=== PATIENT | female | born 1935 | race Caucasian/White ===

== ENCOUNTER 2016-10-22 05:53 | Inpatient (IN) | payer MEDICARE, OTHER ==
[~2016-10-22] VITALS: Ht 149.9 cm; Wt 61.3 kg
[~2016-10-22 05:53] MED LIST: ALDACTONE25 MG PO; ATIVAN0.5 MG PO; BROVANA15 MCG/2 M INH; BYSTOLIC10 MG PO; CENTRUM SILVER1 EAC1 PO; CRANBERRY405 MG PO; CULTURELLE1 CAP PO; ENTRESTO 24 MG1 EACH PO; HALFPRIN81 MG PO; LASIX20 MG PO; LEVAQUIN750 MG PO; LEXAPRO10 MG PO; LIPITOR80 MG PO; MILLIPRED5 MG PO; MUCINEX600 MG PO; NEXIUM40 MG PO; PREDNISONE5 MG PO; PROBIOTIC1 EAC3 PO; PROTONIX40 MG PO; PROVENTIL2.5 MG/3 M INH; PULMICORT0.5 MG/2 M INH; SPIRIVA18 MCG INH; SYNTHROID25 MCG PO; TYLENOL325 MG PO; ZETIA10 MG PO; ZOCOR20 MG PO
[2016-10-22] MEDS ORDERED: PREDNISONE5 MG PO (06:43)
[2016-10-22] MEDS ORDERED: FERROUS SULFAT325 M1 PO (09:40)
[2016-10-25] MEDS ORDERED: MUCINEX600 MG PO (08:41)
[2016-10-25] MEDS ORDERED: PREDNISONE10 MG PO (08:43)
[2016-10-25] MEDS ORDERED: OMNICEF300 MG PO (08:46)
[2017-02-27] MEDS ORDERED: HYDROCODON-ACE1 EAC4 PO (10:59)
== END 2016-10-25 09:20 | disposition short-term general hospital (02) | DRG 190 ==
LOC: ER 05:53 → IP 08:22
PROVIDERS: ADMIT Family Medicine
PROC: 3E0F7GC Introduction of Other Therapeutic Substance into Respiratory Tract, Via Natural or Artificial Opening (ICD-10-PCS; principal; 2016-10-22)
DX: J44.0 Chronic obstructive pulmonary disease with (acute) lower respiratory infection (principal); J18.9 Pneumonia, unspecified organism; J44.1 Chronic obstructive pulmonary disease with (acute) exacerbation; Z79.52 Long term (current) use of systemic steroids; D72.829 Elevated white blood cell count, unspecified; D63.8 Anemia in other chronic diseases classified elsewhere; F41.9 Anxiety disorder, unspecified; K21.9 Gastro-esophageal reflux disease without esophagitis; E78.5 Hyperlipidemia, unspecified; E03.9 Hypothyroidism, unspecified; I11.0 Hypertensive heart disease with heart failure; I50.9 Heart failure, unspecified; Z86.14 Personal history of Methicillin resistant Staphylococcus aureus infection; Z87.891 Personal history of nicotine dependence
CPT/HCPCS: A9150; J0456; J0696; J1650; J2930; J8499

== ENCOUNTER 2016-10-28 18:31 | Emergency (ER) | payer MEDICARE, OTHER ==
[~2016-10-28] VITALS: Ht 152.4 cm; Wt 65.3 kg
[~2016-10-28 18:31] MED LIST changes: +FERROUS SULFAT325 M1 PO; +OMNICEF300 MG PO; +PREDNISONE10 MG PO
[2017-02-27] MEDS ORDERED: HYDROCODON-ACE1 EAC4 PO (10:59)
== END 2016-10-28 22:30 | disposition short-term general hospital (02) ==
LOC: ER 18:31
DX: I13.0 Hypertensive heart and chronic kidney disease with heart failure and stage 1 through stage 4 chronic kidney disease, or unspecified chronic kidney disease (principal); N18.9 Chronic kidney disease, unspecified; I50.9 Heart failure, unspecified; I25.10 Atherosclerotic heart disease of native coronary artery without angina pectoris; D64.9 Anemia, unspecified; K21.9 Gastro-esophageal reflux disease without esophagitis; F32.9 Major depressive disorder, single episode, unspecified; Z86.14 Personal history of Methicillin resistant Staphylococcus aureus infection; Z88.2 Allergy status to sulfonamides; Z88.1 Allergy status to other antibiotic agents; Z88.8 Allergy status to other drugs, medicaments and biological substances; Z87.891 Personal history of nicotine dependence; Z79.82 Long term (current) use of aspirin; Z79.899 Other long term (current) drug therapy

== ENCOUNTER → 2016-11-06 | Outpatient (CLI) | payer MEDICARE, OTHER ==
[~2016-11-06] MED LIST changes: +HYDROCODON-ACE1 EAC4 PO
== END | disposition short-term general hospital (02) ==
LOC: CLCARD 10-30 12:58
DX: I11.0 Hypertensive heart disease with heart failure (principal); I50.32 Chronic diastolic (congestive) heart failure; I25.5 Ischemic cardiomyopathy; I25.10 Atherosclerotic heart disease of native coronary artery without angina pectoris; I35.0 Nonrheumatic aortic (valve) stenosis; J44.9 Chronic obstructive pulmonary disease, unspecified; I27.2 Other secondary pulmonary hypertension; E78.5 Hyperlipidemia, unspecified

== ENCOUNTER → 2016-11-20 | Outpatient (CLI) | payer MEDICARE, OTHER | END | disposition short-term general hospital (02) | LOC: CLCARD 07:56 | DX: I50.42 Chronic combined systolic (congestive) and diastolic (congestive) heart failure (principal); J44.9 Chronic obstructive pulmonary disease, unspecified; I25.10 Atherosclerotic heart disease of native coronary artery without angina pectoris; E78.5 Hyperlipidemia, unspecified; I11.0 Hypertensive heart disease with heart failure; I35.0 Nonrheumatic aortic (valve) stenosis; Z97.8 Presence of other specified devices ==

== ENCOUNTER → 2016-12-18 | Outpatient (CLI) | payer MEDICARE, OTHER | END | disposition short-term general hospital (02) | LOC: CLCARD 08:44 | DX: I50.42 Chronic combined systolic (congestive) and diastolic (congestive) heart failure (principal); I25.10 Atherosclerotic heart disease of native coronary artery without angina pectoris; J44.9 Chronic obstructive pulmonary disease, unspecified; I27.2 Other secondary pulmonary hypertension; E78.5 Hyperlipidemia, unspecified; I95.9 Hypotension, unspecified; Z86.79 Personal history of other diseases of the circulatory system; I35.0 Nonrheumatic aortic (valve) stenosis ==